=== PATIENT | female | born 1975 | race Hispanic/Latino ===

== ENCOUNTER 2023-12-10 13:40 | Emergency (ER) | payer SELFPAY ==
[2023-12-10] MEDS ORDERED: Ondansetron PF 4 MG/2 ML Vial ONE (14:20)
[2023-12-10] MEDS ORDERED: Ketorolac Tromethamine 30 MG (1 mL) VIAL ONE ×2 (14:20→17:38)
[2023-12-10 14:28] LABS: #Basophils 0.11 10x3/uL (0.0-0.2); #Eosinphils 0.16 10x3/uL (0.0-0.5); #Monocytes 0.33 10x3/uL (0.0-1.1); #Neutrophils 4.16 10x3/uL (1.5-8.4); %Basophils 1.6 % (0.0-2.0); %Eosinophils 2.3 % (0.0-6.0); %Lymphocytes 32.2 % (18.0-47.0); %Monocytes 4.7 % (0.0-10.0); %Neutrophils 58.8 % (40.0-75.0); Hematocrit 37.8 % (34.9-44.5); Hemoglobin 13.1 g/dL (12.0-15.5); Mean Corpuscular HGB CONC 34.7 g/dL (32.0-36.0); Mean Corpuscular Hemoglobin 29.4 pg (27.0-33.0); Mean Corpuscular Volume 84.8 fl (81.6-98.3); Platelet Count 409 10x3/uL (150-450); RBC Distribution Width 13.4 % (11.5-14.5); Red Blood Cell (RBC) Count 4.46 10x6/uL (3.90-5.03); White Blood Cell (WBC) Count 7.1 10x3/uL (3.5-10.5)
[2023-12-10 14:40] LABS: ALT (SGPT) 13 U/L (8-55); AST (SGOT) 18 U/L (5-34); Albumin 3.5 g/dL (3.5-5.0); Alkaline Phosphatase 84 U/L (40-110); Anion Gap 14 mmol/L (10-20); BHCG - Serum Negative (NEGATIVE); BUN (Urea Nitrogen) 9 mg/dL (7.0-18.7); Bilirubin, Total 0.7 mg/dL (0.2-1.2); Calc. Creatinine Clearance 0 mL/min (70-130); Calcium 9.3 mg/dL (7.8-10.44); Carbon Dioxide 22 mmol/L (22-29); Chloride 106 mmol/L (98-107); Estimated GFR 106; Globulin 3.3 g/dL (2.4-3.5); Glucose 106 mg/dL (70-105); Lipase 40 U/L (8-78); Pregs Control Background? CLEAR/WHITE (CLR/WHITE); Pregs Control Bar Appear? YES (CONTROL BAR); Protein, Total 6.8 g/dL (6.0-8.3); Sodium 138 mmol/L (136-145)
[2023-12-10 14:46] LABS: Troponin I Less than 0.010 ng/mL (< 0.028)
[2023-12-10 14:59] LABS: Bilirubin Neg (Negative); Blood, Urine 10 (Negative); Clarity Clear (Clear); Glucose, Urine (Dipstick) Normal (Negative); Ketone, Urine 5 mg/dL (Negative); Leukocyte 25 (Negative); Nitrite Negative (Negative); Protein, Urine (Dipstick) 100 mg/dl (Neg-Trace); Specific Gravity, Urine 1.015 (1.005-1.030)
[2023-12-10] MEDS ORDERED: Acetaminophen 500 MG TAB ONE (15:32)
[2023-12-10 17:06] LABS: CAUTI Indications for Culture Pelvic or flank pain; Transitional Epithelial 0-3 HPF (None Seen)
[2023-12-10 17:07] LABS: Bacteria/HPF 2+ HPF (None Seen); Epithelial Cast 0-3 LPF (None Seen); Mucous/LPF 2+ LPF (<2+)
[2023-12-10 17:08] LABS: Urine Culture Reflex No No
== END 2023-12-10 19:08 | disposition home or self-care (01) ==
LOC: CSHERS 13:40
DX: N83.202 Unspecified ovarian cyst, left side (principal); N83.201 Unspecified ovarian cyst, right side
CPT/HCPCS: 76856; 80053; 81001; 83690; 84484; 84703; 85025; 93005; 96361; 96374; 96375; 96376; J1885; J2405